=== PATIENT | male | born 1980 | race Caucasian/White ===

== ENCOUNTER 2023-11-03 20:33 | Emergency (ER) | payer BC ==
[~2023-11-03] VITALS: Ht 177.8 cm; Wt 77.1 kg
[~2023-11-03 20:33] MED LIST: AMOXICILLIN500 MG PO
== END 2023-11-03 22:19 | disposition home or self-care (01) ==
LOC: ED 20:33
DX: K40.90 Unilateral inguinal hernia, without obstruction or gangrene, not specified as recurrent (principal); R10.32 Left lower quadrant pain; Z90.49 Acquired absence of other specified parts of digestive tract

== ENCOUNTER → 2023-11-25 | Day surgery (SDC) | payer BC ==
[2023-11-21 13:37] LABS: BASO # 0.1 10*3/uL (0.0-0.1); BASO % 1.3 % (0.0-1.0); EOS # 0.3 10*3/uL (0.0-0.4); EOS % 3.8 % (1.0-4.0); HEMATOCRIT 47.8 % (42.0-52.0); LYMPH # 2.2 10*3/uL (1.3-4.4); LYMPH % 29.6 % (27.0-41.0); MEAN CELL VOLUME 91.2 fl (80.0-94.0); MEAN CORPUSCULAR HGB 30.3 pg (27.0-31.0); MEAN CORPUSCULAR HGB CONC 33.3 g/dl (33.0-37.0); MEAN PLATELET VOLUME 10.9 fl (9.6-12.3); MONO # 0.7 10*3/uL (0.1-1.0); MONO % 8.8 % (3.0-9.0); NEUT # 4.2 10*3/uL (2.3-7.9); PLATELET COUNT AUTOMATED 225 10*3/uL (130-400); RED BLOOD COUNT 5.24 10*6/uL (4.50-5.90); RED CELL DISTRI WIDTH 13.9 % (0-14.5); WHITE BLOOD COUNT 7.5 10*3/uL (4.8-10.8)
[2023-11-21 13:46] LABS: BILIRUBIN Negative (Negative); BLOOD Negative (Negative); CLARITY Clear (Clear); COLOR Yellow (Yellow); GLUCOSE Negative (Negative); KETONE Negative (Negative); LEUKO ESTERASE Negative (Negative); NITRITE Negative (Negative); SPECIFIC GRAVITY 1.015 (1.001-1.030); UROBILINOGEN 0.2 E.U./dl (0.0-1.0)
[2023-11-21 14:03] LABS: BUN 9 mg/dl (9-23); CHLORIDE 105 mmol/L (98-107); POTASSIUM 3.8 mmol/L (3.4-5.1)
[2023-11-21 14:10] LABS: RBC 0-2 rbc/hpf (0-2)
[~2023-11-25] VITALS: Ht 177.8 cm; Wt 79.4 kg
[~2023-11-25] MED LIST changes: +COLACE100 MG PO; +Dexamethasone Sodium Phospha 20 MG/5 ML VIAL IV ONE; +GLYCOPYRROLATE 0.4 MG/2 ML VIAL IV ONE; +HYDROCODONE-AC1 EAC1 PO; +Ketorolac Tromethamine 30 MG/ML VIAL IV ONE; +Lactated Ringer's Solution 1,000 ML IV ONE; +Lactated Ringer's Solution 1,000 ML IV SCH; +Lidocaine Hydrochloride 2% 10 ML AMP IM ONE; +Midazolam Hydrochloride 2 MG/2 ML VIAL IV STA; +Neostigmine Methylsulfate 3 MG/3 ML SYRINGE IV ONE; +Ondansetron Hydrochloride 4 MG/2 ML VIAL IV ONE; +PROPOFOL 200 MG/20 ML VIAL IV ONE; +ROCURONIUM BROMIDE 50 MG/5 ML SYRINGE IV ONE; +SEVOFLURANE 250 ML BOT INH ONE; +ceFAZolin sodium/sodium chlor 20 ML IV ONE
[2023-11-25 09:32] VITALS: BP 115/73
[2023-11-25 13:28] VITALS: BP 145/89
[2023-11-25 13:42] VITALS: BP 129/84
[2023-11-25 13:57] VITALS: BP 135/87
[2023-11-25 14:13] VITALS: BP 127/86
[2023-11-25 14:28] VITALS: BP 134/91
== END | disposition home or self-care (01) ==
LOC: SDC 11-21 13:15
PROVIDERS: ATTEND Surgery
DX: K40.90 Unilateral inguinal hernia, without obstruction or gangrene, not specified as recurrent (principal); Z90.49 Acquired absence of other specified parts of digestive tract; Z87.891 Personal history of nicotine dependence; Z98.890 Other specified postprocedural states